=== PATIENT | male | born 1935 | race Caucasian/White ===

== ENCOUNTER 2017-09-06 12:34 | Emergency (ER) | payer MEDICARE ==
[2017-09-06] MEDS ORDERED: fentaNYL 100 MCG/2 ML SDV IVPUSH ONE (13:14)
--- NOTE | 2017-09-06 13:18 | EDM.PDOC ---
ED HPI GENERAL MEDICAL PROBLEM - General Chief Complaint: Head Injury Stated Complaint: FELL Time Seen by Provider: 09/06/17 12:49 Source of Information: Reports: Patient, Family, RN Notes Reviewed History Limitations: Reports: No Limitations - History of Present Illness INITIAL COMMENTS - FREE TEXT/NARRATIVE: 81-year-old gentleman presents to the emergency department today following a fall, he was walking into one of the local stores tripped on a rug fell into the wall hit his head and then fell onto the ground stopping himself with his right hand and and onto his right shoulder. He is experiencing pain in the right shoulder right hand and he does have a headache he does have a laceration over his right eye as well, denies any nausea or vomiting or loss of consciousness. 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 Right Shoulder Pain Score (Numeric/FACES): 8 - Related Data Allergies Allergy/AdvReac Type Severity Reaction Status Date / Time Penicillins Allergy Swelling Verified 09/06/17 12:53 Home Meds: Home Meds Cilostazol 1 tab PO BID 09/06/17 [History] Gabapentin [Neurontin] 1 tab PO QID 09/06/17 [History] Melatonin 1 tab PO DAILY 09/06/17 [History] Propranolol HCl [Propranolol] 1 tab PO BID 09/06/17 [History] Simvastatin [Zocor] 1 tab PO BEDTIME 09/06/17 [History] Warfarin Sodium 1 tab PO ASDIRECTED 09/06/17 [History] Past Medical History HEENT History: Reports: Impaired Vision Cardiovascular History: Reports: High Cholesterol Hematologic History: Reports: Anticoagulation Therapy - Past Surgical History HEENT Surgical History: Reports: Tonsillectomy GI Surgical History: Reports: Appendectomy Social & Family History - Tobacco Use Smoking Status *Q: Never Smoker - Recreational Drug Use Recreational Drug Use: No ED ROS GENERAL - Review of Systems Review Of Systems: See Below Constitutional: Reports: No Symptoms HEENT: Reports: No Symptoms Respiratory: Reports: No Symptoms Cardiovascular: Reports: No Symptoms GI/Abdominal: Reports: No Symptoms Musculoskeletal: Reports: Shoulder Pain, Hand Pain Skin: Reports: Wound Neurological: Reports: No Symptoms ED EXAM, HEAD INJURY - Physical Exam Exam: See Below Text/Narrative:: General: Male, not in any distress, alert and oriented x3 HEENT: head is approximately a 3 cm laceration is appreciated above the right eyebrow normocephalic, eyes pupils equal round reactive to light, sclera clear no conjunctivitis appreciated, extraocular eye movements intact,. Ears blocked by cerumen bilaterally canals are clear. Nose no septal deviation, nares are clear , no blood present. Mouth mucosa is moist and pink no erythema or exudate noted in soft palate, tongue is midline uvula is midline, dentition is intact. Neck: Supple no thyromegaly no tracheal deviation. No tenderness to palpation full range of motion without tenderness Nodes: Cervical nodes subclavicular nodes nontender no palpable lymphadenopathy noted. Lungs: clear to auscultation bilaterally with symmetrical respirations, no adventitious noise appreciated. CV: Regular rate and rhythm S1 and S2 appreciated no murmurs rubs or gallops noted. Abdomen: Soft, nontender, no palpable masses or organomegaly appreciated, no distention no guarding bowel sounds are present, bruises noted right upper quadrant. Neuro: Cranial nerves II through XII grossly intact Skin: Warm and dry, intact Extremities: No lower extremity edema appreciated, ED LACERATION/WOUND & ANABELA PROC - Laceration/Wound Repair Face Lac/wound length in cm: 3 Appearance: Subcutaneous Distal NVT: Neuro & Vascular Intact, No Tendon Injury Anesthetic Type: Local Local Anesthesia - Lidocaine (Xylocaine): 1% with EPI Local Anesthetic Volume: 2cc Skin Prep: Saline Saline irrigation (cc's): 60 Exploration/Debridement/Repair: Wound Explored, In a Bloodless Field, Explored to Base Closed with: Sutures Suture Size: other (5-0) # of Sutures: 2 Suture Type: Running Sterile Dressing Applied: Nurse Tetanus Status Addressed: Yes (2015) Complications: No Course - Vital Signs Last Recorded V/S: Last Vital Signs Temp 98.0 F 09/06/17 12:49 Pulse 66 09/06/17 12:49 Resp 18 09/06/17 12:49 BP 134/80 09/06/17 12:49 Pulse Ox 97 09/06/17 12:49 - Orders/Labs/Meds Meds: Medications Discontinued Medications Generic Name Dose Route Start Last Admin Trade Name Freq PRN Reason Stop Dose Admin Bacitracin 1 dose 09/06/17 13:19 09/06/17 13:35 Bacitracin Oint 1 Gm TOP 09/06/17 13:20 1 dose ONETIME ONE Administration Fentanyl 50 mcg 09/06/17 13:14 09/06/17 13:32 Sublimaze IVPUSH 09/06/17 13:15 50 mcg ONETIME ONE Administration Lidocaine/Epinephrine 20 ml 09/06/17 13:19 09/06/17 13:35 Xylocaine 1% With Epinephrine 1:100,000 SUBCUT 09/06/17 13:20 20 ml NOW STA Administration Departure - Departure Time of Disposition: 15:03 Disposition: Home, Self-Care 01 Clinical Impression: Head injury Qualifiers: Encounter type: initial encounter Qualified Code(s): S09.90XA - Unspecified injury of head, initial encounter Eyebrow laceration Qualifiers: Encounter type: initial encounter Laterality: right Qualified Code(s): S01.111A - Laceration without foreign body of right eyelid and periocular area, initial encounter - Discharge Information Referrals: PCP,None [Primary Care Provider] - Forms: ED Department Discharge Additional Instructions: Suture removal in 3 days, please follow-up with primary care for further evaluation of CT scan - Assessment/Plan Plan: Assessment Acuity = acute Site and laterality = head injury and right shoulder injury 3 cm laceration above the right eye Etiology = secondary to fall Manifestations = none Location of injury = Home Lab values = x-rays of the hand shoulder maxillofacial bones show no acute fracture however CTs scan of the head show increased ventricles out of proportion with atrophy concern for normal pressure hydrocephalus Plan Suture removal in 3 days follow-up with primary care for review CT scan and further workup This note was dictated using [employer] voice recognition software please call with any questions on syntax or grammar.
[2017-09-06] MEDS ORDERED: Bacitracin Oint 1 GM U/D Packet TOP ONE (13:19)
[2017-09-06] MEDS ORDERED: Lidocaine 1% with EPINEPHrine 1:100,000 50 ML MDV SUBCUT STA (13:19)
--- NOTE | 2017-09-06 14:16 | CT ---
Head wo Cont INDICATION: trauma fall TECHNIQUE: CT images of the head obtained without IV contrast. Dosage reduction and iterative reconstruction techniques employed. COMPARISON: None FINDINGS: Large scalp hematoma over the right supraorbital region. No acute intracranial hemorrhage . Diffuse atrophy and chronic small vessel ischemic disease. Ventricular dilatation appears out of pr oportion to degree of atrophy raising the possibility of normal pressure hydrocephalus. No skull frac ture. IMPRESSION: 1. No intracranial hemorrhage. 2. Large scalp hematoma right supraorbital region. 3. Possible normal pressure hydrocephalus.
--- NOTE | 2017-09-06 14:24 | CR ---
Shoulder Comp Rt INDICATION: trauma fall COMPARISON: None FINDINGS: 3 views. No fracture, dislocation, or other acute bony abnormality. No joint space narr owing.
--- NOTE | 2017-09-06 14:27 | CR ---
Hand 2V Rt INDICATION: trauma fall COMPARISON: None FINDINGS: 2 views. No fracture, dislocation, or other acute bony abnormality. Degenerative change , especially at the first CMC joint.
--- NOTE | 2017-09-06 14:28 | CT ---
Max Facial Sinus wo Cont INDICATION: trauma fall TECHNIQUE: CT images of the facial bones obtained. Coronal and sagittal reformatted images obtained. Dosage reduction and iterative reconstruction techniques employed. COMPARISON: None FINDINGS: There is a fracture at the base of the odontoid, which may be subacute or old. Margins are somewhat corticated. Overall alignment of the upper cervical spine is anatomic. Right supraorbital sc alp hematoma and probable laceration. No intraorbital hemorrhage. Orbits are intact. No facial bone f racture. The paranasal sinuses are clear. IMPRESSION: 1. No facial bone fracture. 2. Right supraorbital scalp hematoma. 3. Subacute or old fracture base of the odontoid. Discussed with Dr. Jessica Officer immediately following the study.
== END 2017-09-06 15:45 | disposition home or self-care (01) ==
LOC: JP.ED 12:34
DX: S01.111A Laceration without foreign body of right eyelid and periocular area, initial encounter (principal); E78.00 Pure hypercholesterolemia, unspecified; Z88.0 Allergy status to penicillin; Z79.899 Other long term (current) drug therapy; Z79.01 Long term (current) use of anticoagulants; W18.09XA Striking against other object with subsequent fall, initial encounter
CPT/HCPCS: 12013; 70450; 70486; 73030; 73120; 99284; J3010